=== PATIENT | male | born 1985 | race Asian ===

== ENCOUNTER 2021-03-27 22:23 | Emergency (ER) | payer SELFPAY ==
--- NOTE | 2021-03-27 22:25 | XRR_ITS ---
PROCEDURE INFORMATION: Exam: XR Chest Exam date and time: 03/27/2021 10:25 PM Age: 35 years old Clinical indication: Shortness of breath; Additional info: SOB 4-5 days, chest pain starting 2 days ago TECHNIQUE: Imaging protocol: XR of the chest. Views: 1 view. COMPARISON: No relevant prior studies available. FINDINGS: Lungs: Unremarkable. No consolidation. Pleural spaces: Unremarkable. No pleural effusion. No pneumothorax. Heart/Mediastinum: Unremarkable. No cardiomegaly. Bones/joints: Unremarkable. XR/XR chest 1V portable [id number] IMPRESSION: No acute findings.
--- NOTE | 2021-03-27 22:25 | ECG_ITS ---
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 Measurements Intervals [place] Rate: 53 P: 71 AR: 171 QRS: 16 QRSD: 102 T: 57 QT: 422 QTc: 396 Interpretive Statements SINUS BRADYCARDIA WITH MARKED SINUS ARRHYTHMIA No previous ECG available for comparison Electronically Signed On 03-29-2021 14:41:54 CHERRY CUTTER by Sol Mariscal M.D. [id number]
[2021-03-27 22:36] VITALS: BP 130/91; PULSE 62; RESP 18; TEMP 36.8; O2SAT 98; BMI 29.2
--- NOTE | 2021-03-27 23:44 | ECG_ITS ---
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 Measurements Intervals [place] Rate: 54 P: 63 WV: 167 QRS: 12 QRSD: 100 T: 54 QT: 422 QTc: 403 Interpretive Statements SINUS BRADYCARDIA WITH SINUS ARRHYTHMIA Compared to ECG 03/27/2021 22:47:04 No significant changes Electronically Signed On 03-29-2021 14:41:49 PHTHALIC ACID PURIFIER by Sol Mariscal M.D. [id number]
--- NOTE | 2021-03-28 02:44 | W.ED.CHESTPA ---
HPI - Chest Pain General: Chief Complaint: Shortness of Breath/Dyspnea Stated Complaint: SOB Time Seen by Provider: 03/28/21 02:36 Source: patient Mode of arrival: ambulatory Limitations: no limitations History of Present Illness: 35-year-old male states has been having chest pains and dyspnea for months roughly 4 to 5 months. He states he just came over here from [place] roughly 1 month ago has been having some worsening chest pain especially with breathing over the last 4 to 5 days. States pain sharp in nature mainly on the right side rates it a 4 out of 10 currently he is in no distress denies any cough denies any fever no history of blood clots or heart disease. Associated symptoms: Reports dyspnea; Deny abdominal pain, fever(s), nausea or vomiting Review of Systems Const: Denies: fever(s), chills, body aches or change in appetite Eyes: Denies: blurry vision or eye discomfort ENMT: Denies: throat pain or dental pain Card: Reports: chest pain Resp: Reports: dyspnea GI: Denies: abdominal pain, nausea, vomiting or diarrhea : Denies: dysuria Musc: Denies: neck pain or back pain Skin/Breast: Denies: rash Neuro: Denies: headache(s) Psych: Denies: depression Mohamud/Lymph: Denies: easy bruising All/Imm: Denies: urticaria PFSH ED PFSH: Family History (Updated 03/28/21 @ 02:45 by Jaylan Cornejo MD) Denies family history of CAD (coronary artery disease) Social History (Updated 03/28/21 @ 02:45 by Jaylan Cornejo MD) Smoking and tobacco status: never smoked Physical Exam Const: COMMON NORMALS: no acute distress, patient oriented x3 and healthy appearing HENMT: COMMON NORMALS: normocephalic and atraumatic HEAD & SCALP: normocephalic and atraumatic Eye: COMMON NORMALS: Equal, round and reactive pupils present and EOMs intact bilaterally PUPIL: Yes Equal, round and reactive pupils present Neck/C-Spine: COMMON NORMALS: full ROM and supple Chest: COMMONS NORMALS: normal inspection of the chest and normal palpation of entire chest wall Resp: COMMON NORMALS: normal respiratory effort, No retractions, No use of accessory muscles and clear to auscultation bilaterally AUSCULTATION: clear to auscultation bilaterally Cardio: COMMON NORMALS: regular rate, regular rhythm and No murmurs present (Cardio) RATE: regular rate RHYTHM: regular rhythm GI: COMMON NORMALS: Normal to inspection, nondistended, normoactive bowel sounds present, Soft to palpation, non-tender and no masses PALPATION: Yes Soft to palpation Extremity: COMMON NORMALS: normal to inspection and full ROM Neuro: COMMON NORMALS: patient oriented x3, moves all extremities and no focal motor deficits Psych: COMMON NORMALS: mental status grossly normal, Normal thought process present and cooperative THOUGHT PROCESS: Normal thought process present Skin: COMMON NORMALS: no rashes or lesions noted and no wounds GENERAL SKIN EXAM: no rashes or lesions noted Course Vital Signs: Vital signs: Vital Signs Temperature 98.2 F 03/27/21 22:36 Pulse Rate 62 03/27/21 22:36 Respiratory Rate 18 03/27/21 22:36 Blood Pressure 130/91 03/27/21 22:36 Pulse Oximetry 98 03/27/21 22:36 MDM - Chest Pain Medical Decision Making Patient presents for chest pains been going on for months is atypical in nature his troponin and D-dimer here negative no signs of pulmonary embolism x-ray and EKG are normal as well he is stable for discharge is to follow-up PCP and 3 to 5 days return if worsening. Lab Data : 03/28/21 02:47 03/28/21 02:47 Radiology Impressions Chest X-Ray 03/27/21 22:25 IMPRESSION: No acute findings. Laboratory Results WBC 6.3 10^3/uL (4.0-10.0) 03/28/21 02:47 RBC 4.98 10^6/uL (4.1-5.3) 03/28/21 02:47 Hgb 16.2 g/dL (11.7-16.6) 03/28/21 02:47 Hct 46.5 % (42.0-52.0) 03/28/21 02:47 MCV 93.4 fl (80-94) 03/28/21 02:47 MCH 32.5 pg (28.0-34.0) 03/28/21 02:47 MCHC 34.8 g/dL (30.0-36.0) 03/28/21 02:47 RDW 12.3 % (12.1-15.1) 03/28/21 02:47 Plt Count 187 10^3/cmm (130-400) 03/28/21 02:47 MPV 10.3 fL (7.4-10.4) 03/28/21 02:47 Neut % (Auto) 43.2 % 03/28/21 02:47 Lymph % (Auto) 44.5 % 03/28/21 02:47 [place] % (Auto) 9.4 % 03/28/21 02:47 Eos % (Auto) 1.9 % 03/28/21 02:47 Baso % (Auto) 0.8 % 03/28/21 02:47 Neut # (Auto) 2.70 10^3/uL (1.8-7.7) 03/28/21 02:47 Lymph # (Auto) 2.8 10^3/uL (0.8-4.8) 03/28/21 02:47 [place] # (Auto) 0.6 10^3/uL (0.2-0.9) 03/28/21 02:47 Eos # (Auto) 0.1 10^3/uL (0.0-0.8) 03/28/21 02:47 Baso # (Auto) 0.1 10^3/uL (0.0-0.1) 03/28/21 02:47 Nucleated RBC % (auto) 0 % 03/28/21 02:47 Nucleated RBCs # 0.0 /100WBC 03/28/21 02:47 D-Dimer <= 0.27 ug/mIFEU (0-0.59) 03/28/21 02:47 Sodium 141 mmol/L (136-145) 03/28/21 02:47 Potassium 3.8 mmol/L (3.5-5.1) 03/28/21 02:47 Chloride 104 mmol/L (98-107) 03/28/21 02:47 Carbon Dioxide 26 mmol/L (22-29) 03/28/21 02:47 Anion Gap 14.8 (5-19) 03/28/21 02:47 BUN 9 mg/dL (6-20) 03/28/21 02:47 Creatinine 0.8 mg/dL (0.7-1.2) 03/28/21 02:47 GFR Calculation 110.0 mL/min (90-130) 03/28/21 02:47 Glucose 107 mg/dL (65-115) 03/28/21 02:47 Calculated Osmolality 291 mOsm/kg (285-295) 03/28/21 02:47 Calcium 8.7 mg/dL (8.5-10.5) 03/28/21 02:47 Total Bilirubin 0.4 mg/dL (0.15-1.2) 03/28/21 02:47 AST 28 U/L (0-40) 03/28/21 02:47 ALT 43 U/L (0-41) H 03/28/21 02:47 Alkaline Phosphatase 58 IU/L (40-130) 03/28/21 02:47 Troponin T Baseline 8 ng/L (0-15) 03/28/21 02:47 Total Protein 7.1 g/dL (6.6-8.7) 03/28/21 02:47 Albumin 4.9 g/dL (3.5-5.2) 03/28/21 02:47 Globulin 2.2 g/dL (1.3-4.6) 03/28/21 02:47 EKG Data EKG 1: I personally reviewed and interpreted this EKG as follows: EKG interpretation date: 03/27/21 EKG interpretation time: 22:47 Interpretation: sinus guzman hr [address] or t wave abnormalities qrs 100 qtc 409 Discharge Plan Discharge Patient Disposition: Home Clinical Impression: Chest pain Discharge Orders: Discharge ED (Routine); Ordered 03/28/21 Ordered By: Jaylan Cornejo Discharge Diet: Advance as tolerated Discharge Activity: Resume usual activity Patient Instructions: Chest Pain (ED) Coding Level of Care Code ED Contract Sheltered Workshop Supervisor for Chg Fwd Exam Comprehensive
[2021-03-28 02:51] LABS: Basophils # 0.1 10^3/uL (0.0-0.1); Basophils % 0.8 %; Eosinophils # 0.1 10^3/uL (0.0-0.8); Eosinophils % 1.9 %; Hematocrit 46.5 % (42.0-52.0); Hemoglobin 16.2 g/dL (11.7-16.6); Lymphocytes # 2.8 10^3/uL (0.8-4.8); Lymphocytes % 44.5 %; Mean Corpuscular HGB Conc 34.8 g/dL (30.0-36.0); Mean Corpuscular Hemoglobin 32.5 pg (28.0-34.0); Mean Corpuscular Volume 93.4 fl (80-94); Mean Platelet Volume 10.3 fL (7.4-10.4); Monocytes # 0.6 10^3/uL (0.2-0.9); Monocytes % 9.4 %; Neutrophils % 43.2 %; Nucleated Red Blood Cells % 0 %; Platelet Count 187 10^3/cmm (130-400); Red Blood Count 4.98 10^6/uL (4.1-5.3); Red Cell Distribution Width 12.3 % (12.1-15.1); White Blood Count 6.3 10^3/uL (4.0-10.0)
--- NOTE | 2021-03-28 02:55 | PC.NURSE ---
pt denied pain medicine at this time
[2021-03-28 03:08] LABS: Troponin(5th) Baseline 8 ng/L (0-15)
[2021-03-28 03:19] LABS: D Dimer <= 0.27 ug/mIFEU (0-0.59)
[2021-03-28 03:21] LABS: Alanine Aminotransferase 43 U/L (0-41); Albumin Level 4.9 g/dL (3.5-5.2); Alkaline Phosphatase 58 IU/L (40-130); Blood Urea Nitrogen 9 mg/dL (6-20); Calcium 8.7 mg/dL (8.5-10.5); Carbon Dioxide 26 mmol/L (22-29); Chloride 104 mmol/L (98-107); Globulin 2.2 g/dL (1.3-4.6); Glucose 107 mg/dL (65-115); Osmolality Calculated 291 mOsm/kg (285-295); Sodium 141 mmol/L (136-145); Total Bilirubin 0.4 mg/dL (0.15-1.2); Total Protein 7.1 g/dL (6.6-8.7)
[2021-03-28 03:24] LABS: Anion Gap 14.8 (5-19); Aspartate Amino Transferase 28 U/L (0-40); Potassium 3.8 mmol/L (3.5-5.1)
== END 2021-03-28 03:52 | disposition home or self-care (01) ==
PROVIDERS: Emergency Provider Emergency Medicine
DX: R07.9 Chest pain, unspecified (principal)
CPT/HCPCS: 71045; 80053; 84484; 85025; 85378; 93005; 99283

== ENCOUNTER 2021-10-29 19:20 | Emergency (ER) | payer SELFPAY ==
[2021-10-29 19:30] VITALS: TEMP 36.3; O2SAT 97
--- NOTE | 2021-10-29 20:24 | CTR_ITS ---
PROCEDURE INFORMATION: Exam: CT Abdomen And Pelvis Without Contrast Exam date and time: 10/29/2021 8:47 PM Age: 36 years old Clinical indication: Abdominal pain; Flank; Left; Additional info: Left flank pain TECHNIQUE: Imaging protocol: Computed tomography of the abdomen and pelvis without contrast. Radiation optimization: All CT scans at this facility use at least one of these dose optimization techniques: automated exposure control; mA and/or kV adjustment per patient size (includes targeted exams where dose is matched to clinical indication); or iterative reconstruction. COMPARISON: CR XR chest 1V portable [id number] 03/27/2021 10:32 PM RADIATION DOSE METRICS: Total DLP (mGy-cm): 542.49 FINDINGS: Liver: Normal. No mass. Gallbladder and bile ducts: Normal. No calcified stones. No ductal dilation. Pancreas: Normal. No ductal dilation. Spleen: Normal. No splenomegaly. Adrenal glands: Normal. No mass. Kidneys and ureters: Left mid ureter 5.5 mm calculus with mild hydronephrosis and hydroureter with mild perinephric edema perhaps reflecting associated pyelonephritis. Stomach and bowel: Unremarkable. No obstruction. No mucosal thickening. Appendix: No evidence of appendicitis. Intraperitoneal space: Unremarkable. No free air. No significant fluid collection. Vasculature: Unremarkable. No abdominal aortic aneurysm. Lymph nodes: Unremarkable. No enlarged lymph nodes. Urinary bladder: Unremarkable as visualized. Reproductive: Unremarkable as visualized. Bones/joints: Unremarkable. No acute fracture. Soft tissues: Unremarkable. CT/CT kidney stone [id number] IMPRESSION: Left mid ureter 5.5 mm calculus with mild hydronephrosis and hydroureter with mild perinephric edema perhaps reflecting associated pyelonephritis.
[2021-10-29 21:18] VITALS: BP 146/91; PULSE 57; RESP 20; O2SAT 100
--- NOTE | 2021-10-29 21:18 | PC.NURSE ---
assumed care of patient at this time.
[2021-10-29] MEDS: sodium chloride 0.9% 1,000 ML 999 ML IV (21:20)
[2021-10-29] MEDS: ketorolac 30 mg/mL INJ 15 MG IVP (21:20)
[2021-10-29] MEDS: metoclopramide 5 mg/mL SDV 2 mL IVP (21:20)
--- NOTE | 2021-10-29 21:20 | PC.NURSE ---
verbal order from dr wang at this time to cancel serum blood orders.
--- NOTE | 2021-10-29 21:31 | PC.NURSE ---
verbal order from dr wang to continue with lab work, blood walked to lab at this time.
[2021-10-29 21:36] LABS: Basophils # 0.1 10^3/uL (0.0-0.1); Basophils % 0.8 %; Eosinophils # 0.1 10^3/uL (0.0-0.8); Eosinophils % 0.7 %; Hematocrit 43.7 % (42.0-52.0); Hemoglobin 15.2 g/dL (11.7-16.6); Lymphocytes # 1.8 10^3/uL (0.8-4.8); Mean Corpuscular HGB Conc 34.8 g/dL (30.0-36.0); Mean Corpuscular Hemoglobin 32.8 pg (28.0-34.0); Mean Corpuscular Volume 94.2 fl (80-94); Mean Platelet Volume 10.1 fL (7.4-10.4); Monocytes # 0.5 10^3/uL (0.2-0.9); Monocytes % 5.5 %; Neutrophils # 6.31 10^3/uL (1.8-7.7); Neutrophils % 71.8 %; Nucleated Red Blood Cells % 0 %; Platelet Count 176 10^3/cmm (130-400); Red Blood Count 4.64 10^6/uL (4.1-5.3); Red Cell Distribution Width 12.6 % (12.1-15.1); White Blood Count 8.8 10^3/uL (4.0-10.0)
[2021-10-29] MEDS: cefTRIAXone 2,000 MG in sodium chloride 0.9% (plus) 50 ML 100 MG IV (21:38)
[2021-10-29 21:42] VITALS: BP 152/91; PULSE 49; RESP 20; O2SAT 100
[2021-10-29] MEDS: HYDROcodone-acetaminophen 5-325 mg Tablet 1 TAB PO (21:46)
--- NOTE | 2021-10-29 21:46 | W.ED.BACK ---
HPI - Back Pain/Injury General: Chief Complaint: Back Pain/Injury Stated Complaint: back pain Time Seen by Provider: 10/29/21 21:11 History of Present Illness: 36-year-old male presents with left flank pain that radiates to his groin. He reports that started around 2-3 this afternoon. That he got nausea but no vomiting. It feels like he has to pee but is having hard time peeing. Patient has no reports of fever, chills. HPI to be limited as a family member was his per diem interpreter. Associated symptoms: Reports abdominal pain and nausea; Deny chills, fever(s) or vomiting Review of Systems Const: Denies: fever(s) or chills Resp: Denies: dyspnea or productive cough GI: Reports: abdominal pain and nausea; Denies: vomiting or diarrhea : Reports: flank pain (Left-sided) and difficulty urinating Musc: Reports: back pain (Left-sided flank pain); Denies: neck pain or extremity pain Skin/Breast: Denies: rash or pruritus Neuro: Denies: headache(s) or dizziness PFSH ED PFSH: Family History (Updated 03/28/21 @ 02:45 by Jaylan Cornejo MD) Denies family history of CAD (coronary artery disease) Social History (Updated 03/28/21 @ 02:45 by Jaylan Cornejo MD) Smoking and tobacco status: never smoked Physical Exam Const: GENERAL APPEARANCE: well kempt and other (Uncomfortable) HENMT: COMMON NORMALS: normocephalic and atraumatic HEAD & SCALP: normocephalic and atraumatic Resp: COMMON NORMALS: normal respiratory effort, No use of accessory muscles and clear to auscultation bilaterally AUSCULTATION: clear to auscultation bilaterally Cardio: COMMON NORMALS: regular rate and regular rhythm RATE: regular rate RHYTHM: regular rhythm GI: PALPATION: Yes Tenderness to palpation present (GI) Details: LLQ : BLADDER/KIDNEY EXAM: Yes CVA tenderness on the left Back/Pelvis: GENERAL BACK: Yes CVA tenderness Extremity: COMMON NORMALS: full ROM and capillary refill normal Neuro: COMMON NORMALS: moves all extremities and no focal motor deficits Psych: COMMON NORMALS: mental status grossly normal and cooperative APPEARANCE: Yes well kempt Skin: COMMON NORMALS: no rashes or lesions noted GENERAL SKIN EXAM: no rashes or lesions noted Course Vital Signs: Vital signs: Vital Signs Temperature 97.3 F L 10/29/21 19:30 Pulse Rate 50 L 10/29/21 22:16 Respiratory Rate 19 H 10/29/21 22:16 Blood Pressure 121/87 10/29/21 22:16 Pulse Oximetry 96 10/29/21 22:16 Oxygen Delivery Me thod 10/29/21 22:16 MDM - Back Pain/Injury Medical Decision Making Patient with a 5.5 mm mid left ureter calculus. Patient feeling much better following treatment in the ER. Patient was provided follow-up information with the urologist and recommended to follow-up. There are no labs or clinical signs of pyelonephritis. However due to the size and it began mild obstructing I will start him on antibiotic. Patient was stable and discharged home Labs : 10/29/21 21:31 10/29/21 21:31 Radiology Impressions Abdomen/Pelvis CT 10/29/21 20:24 IMPRESSION: Left mid ureter 5.5 mm calculus with mild hydronephrosis and hydroureter with mild perinephric edema perhaps reflecting associated pyelonephritis. Laboratory Results WBC 8.8 10^3/uL (4.0-10.0) 10/29/21 21:31 RBC 4.64 10^6/uL (4.1-5.3) 10/29/21 21:31 Hgb 15.2 g/dL (11.7-16.6) 10/29/21 21:31 Hct 43.7 % (42.0-52.0) 10/29/21 21:31 MCV 94.2 fl (80-94) H 10/29/21 21:31 MCH 32.8 pg (28.0-34.0) 10/29/21 21:31 MCHC 34.8 g/dL (30.0-36.0) 10/29/21 21:31 RDW 12.6 % (12.1-15.1) 10/29/21 21:31 Plt Count 176 10^3/cmm (130-400) 10/29/21 21:31 MPV 10.1 fL (7.4-10.4) 10/29/21 21:31 Neut % (Auto) 71.8 % 10/29/21 21:31 Lymph % (Auto) 21.0 % 10/29/21 21:31 [place] % (Auto) 5.5 % 10/29/21 21:31 Eos % (Auto) 0.7 % 10/29/21 21: Baso % (Auto) 0.8 % 10/29/21 21: Neut # (Auto) 6.31 10^3/uL (1.8-7.7) 10/29/21 21: Lymph # (Auto) 1.8 10^3/uL (0.8-4.8) 10/29/21 21: [place] # (Auto) 0.5 10^3/uL (0.2-0.9) 10/29/21 21: Eos # (Auto) 0.1 10^3/uL (0.0-0.8) 10/29/21 21: Baso # (Auto) 0.1 10^3/uL (0.0-0.1) 10/29/21 21: Nucleated RBC % (auto) 0 % 10/29/21 21: Nucleated RBCs # 0.0 /100WBC 10/29/21 21:31 Sodium 143 mmol/L (136-145) 10/29/21 21: Potassium 4.0 mmol/L (3.5-5.1) 10/29/21 21: Chloride 106 mmol/L (98-107) 10/29/21 21: Carbon Dioxide 26 mmol/L (22-29) 10/29/21 21: Anion Gap 15.0 (5-19) 10/29/21 21: BUN 14 mg/dL (6-20) 10/29/21 21: Creatinine 1.1 mg/dL (0.7-1.2) 10/29/21 21: GFR Calculation 75.7 mL/min (90-130) L 10/29/21 21:31 Glucose 116 mg/dL (65-115) H 10/29/21 21: Calculated Osmolality 297 mOsm/kg (285-295) H 10/29/21 21:31 Calcium 9.0 mg/dL (8.5-10.5) 10/29/21 21:31 Total Bilirubin 0.4 mg/dL (0.15-1.2) 10/29/21 21:31 AST 26 U/L (0-40) 10/29/21 21:31 ALT 36 U/L (0-41) 10/29/21 21:31 Alkaline Phosphatase 62 U/L (40-130) 10/29/21 21:31 Total Protein 7.2 g/dL (6.6-8.7) 10/29/21 21:31 Albumin 4.5 g/dL (3.5-5.2) 10/29/21 21: Globulin 2.7 g/dL (1.3-4.6) 10/29/21 21:31 Urine Color Yellow (Yellow) 10/29/21 22:38 Urine Appearance Clear (CLEAR) 10/29/21 22:38 Urine pH 7 (5-7) 10/29/21 22:38 Ur Specific [place] 1.010 (1.005-1.030) 10/29/21 22:38 Urine Protein Neg (Negative) 10/29/21 22:38 Urine Glucose (UA) Norm (Normal) 10/29/21 22:38 Urine Ketones Negative (Negative) 10/29/21 22:38 Urine Blood 2+ (Negative) H 10/29/21 22:38 Urine Nitrate Negative (Negative) 10/29/21 22:38 Urine Bilirubin Neg (Negative) 10/29/21 22:38 Urine Urobilinogen Neg mg/dL (Negative) 10/29/21 22:38 Ur Leukocyte Esterase Negative (Negative) 10/29/21 22:38 Urine RBC 5-10 /hpf (0-2) H 10/29/21 22:38 Urine WBC 0-4 /hpf (0-5) H 10/29/21 22:38 Ur Squamous Epith Cells 0-4 /hpf (0-5) H 10/29/21 22:38 Amorphous Sediment 1+ /hpf 10/29/21 22:38 Urine Bacteria Trace /hpf (NONE) 10/29/21 22:38 Urine Mucus Trace /hpf 10/29/21 22:38 Discharge Plan Discharge Patient Disposition: Home Clinical Impression: Calculus of proximal left ureter Condition: Stable Prescriptions: New ondansetron 4 mg tablet,disintegrating 4 mg PO Q6H PRN (Reason: nausea and vomiting) Qty: 20 0RF cephalexin 500 mg capsule 500 mg PO Q6H 7 Days Qty: 28 0RF hydrocodone-acetaminophen 5-325 mg tablet 1 tab PO Q8H PRN (Reason: pain) Qty: 10 0RF Discharge Orders: Discharge ED (Routine); Ordered 10/30/21 Ordered By: Seb Martini Referrals: Pavan Mccarthy MD [Physician] - 1-3 days (5.5 mm stone ) Discharge Diet: Advance as tolerated Discharge Activity: Increase activity as tolerated Patient Instructions: Kidney Stones (ED), Opioid Safety, Pain Management Activity Restrictions/Additional Instructions: Please call urology office Saturday to arrange for an appointment time Coding Level of Care Code ED Automatic Fabric Cutter for Chg Fwd Exam Comprehensive
[2021-10-29 21:54] LABS: Alanine Aminotransferase 36 U/L (0-41); Albumin Level 4.5 g/dL (3.5-5.2); Alkaline Phosphatase 62 U/L (40-130); Aspartate Amino Transferase 26 U/L (0-40); Blood Urea Nitrogen 14 mg/dL (6-20); Carbon Dioxide 26 mmol/L (22-29); Chloride 106 mmol/L (98-107); Creatinine Clr Calc Pharmacy 81.0444; Globulin 2.7 g/dL (1.3-4.6); Glomerular Filtration Rate 75.7 mL/min (90-130); Glucose 116 mg/dL (65-115); Osmolality Calculated 297 mOsm/kg (285-295); Sodium 143 mmol/L (136-145); Total Bilirubin 0.4 mg/dL (0.15-1.2); Total Protein 7.2 g/dL (6.6-8.7)
[2021-10-29 22:16] VITALS: BP 121/87; PULSE 50; RESP 19; O2SAT 96
--- NOTE | 2021-10-29 22:20 | PC.NURSE ---
attempted to obtain urine, patient unable to provide.
--- NOTE | 2021-10-29 22:40 | PC.NURSE ---
urine sample sent to lab at this time.
[2021-10-29 22:58] LABS: Add Urine Microscopic? YES; Bilirubin Urine Neg (Negative); Blood Urine 2+ (Negative); Glucose Urine UA Norm (Normal); Ketones Urine Negative (Negative); Leukocyte Esterase Urine Negative (Negative); Nitrate Urine Negative (Negative); Protein Urine Neg (Negative); Urine Appearance Clear (CLEAR); Urine Color Yellow (Yellow); Urobilinogen Urine Neg (Negative); pH Urine 7 (5-7)
[2021-10-29 22:59] LABS: Add Urine Culture? No; Amorphous Sediment Urine 1+ /hpf; Bacteria Urine TRACE /hpf; Mucus Urine TRACE /hpf; Squamous Epithelial Cell Urine 0-4 /hpf (0-5); WBC Urine 0-4 /hpf (0-5)
== END 2021-10-29 23:01 | disposition home or self-care (01) ==
PROVIDERS: Nurse Practitioner Family; Emergency Provider Student in an Organized Health Care Education/Training Program
DX: N20.1 Calculus of ureter (principal)
CPT/HCPCS: 74176; 80053; 81001; 85025; 96365; 96375; 99285; J0696; J1885; J2765; J7030

== ENCOUNTER 2021-11-02 15:02 | Outpatient (CLI) | payer SELFPAY ==
--- NOTE | 2021-11-02 15:33 | XR_ITS ---
WS: [id number] KUB, AP view, 11/02/2021 Clinical Data: STONES Comparison: CT abdomen pelvis, 09/28/2021. Findings: No abnormal intraabdominal masses or calcifications are seen. There is no dilatated small bowel or ev idence of obstruction. There is a large amount of fecal material throughout the colon. Bowel gas obscures detail over both k idneys. The left mid Ureteral calculus seen on the CT scan of the abdomen pelvis is not seen today. There are phleboliths in the left side of the true pelvis. XR/XR KUB [id number] Impression: Negative KUB.
== END 2021-11-02 15:03 | disposition home or self-care (01) ==
PROVIDERS: Visit Provider Urology
DX: N20.1 Calculus of ureter (principal)
CPT/HCPCS: 74018

== ENCOUNTER 2021-11-17 07:12 | Outpatient (CLI) | payer SELFPAY ==
--- NOTE | 2021-11-17 07:33 | XR_ITS ---
WS: [id number] XR KUB [id number] REASON FOR EXAM: ureteral calculus FINDINGS: Distal left ureteral calculus identifiable at the left ureterovesical junction level on the previous examination of 11/02/2021, is no longer identifiable. No other urinary tract calculi are identified. No other abdominal or pelvic abnormality. XR/XR KUB [id number] IMPRESSION: Presumed passage of distal left ureteral calculus compared to the examination o f 11/02/2021.
== END 2021-11-17 07:13 | disposition home or self-care (01) ==
PROVIDERS: Visit Provider Urology
DX: N20.1 Calculus of ureter (principal)
CPT/HCPCS: 74018; 81003